=== PATIENT | female | born 1960 | race Caucasian/White ===

== ENCOUNTER 2020-08-02 15:49 | Emergency (ER) | payer MEDICARE, OTHER ==
[2020-08-02 17:43] LABS: HEMOGLOBIN 13.8 gm/dl (12.3-15.3); RED BLOOD COUNT 4.62 M/UL (4.00-5.10); WHITE BLOOD COUNT 8.3 K/UL (4.5-11.0)
[2020-08-02 18:07] LABS: BUN/CREATININE RATIO 20 (0-10)
== END 2020-08-02 21:30 | disposition home or self-care (01) ==
LOC: ER1 15:49
PROVIDERS: Emergency Medicine
DX: S40.012A Contusion of left shoulder, initial encounter (principal); S40.011A Contusion of right shoulder, initial encounter; S90.122A Contusion of left lesser toe(s) without damage to nail, initial encounter; S80.02XA Contusion of left knee, initial encounter; S80.01XA Contusion of right knee, initial encounter; R07.89 Other chest pain; Z88.7 Allergy status to serum and vaccine; Z88.0 Allergy status to penicillin; W19.XXXA Unspecified fall, initial encounter
CPT/HCPCS: 70450; 71045; 73030; 73560; 73620; 80053; 82550; 82553; 83874; 84439; 84443; 84484; 85025; 93005; 99284